=== PATIENT | male | born 1995 | race African-American/Black ===

== ENCOUNTER 2018-02-16 15:23 | Emergency (ER) | payer MEDICAID | END 2018-02-16 17:35 | disposition home or self-care (01) | LOC: D.ER 15:23 | DX: S30.810A Abrasion of lower back and pelvis, initial encounter (principal); V49.9XXA Car occupant (driver) (passenger) injured in unspecified traffic accident, initial encounter; Y93.89 Activity, other specified; Y92.410 Unspecified street and highway as the place of occurrence of the external cause; S93.401A Sprain of unspecified ligament of right ankle, initial encounter ==